=== PATIENT | female | born 1995 | race Caucasian/White ===

== ENCOUNTER 2023-12-26 19:03 | Emergency (ER) | payer MEDICAID ==
[2023-12-26 20:24] LABS: BASOPHILS PERCENT AUTO 0.1 % (0.0-1.0); EOSINOPHILS PERCENT AUTO 0.8 % (1.0-3.0); HEMATOCRIT 43.8 % (37.0-47.0); HEMOGLOBIN 14.9 g/dL (12.0-16.0); LYMPHOCYTES PERCENT AUTO 30.6 % (20.5-50.1); MEAN CORPUSCULAR HEMOGLOBIN 30.1 pg (27.0-34.0); MEAN CORPUSCULAR VOLUME 88.5 fL (80-100); MONOCYTES PERCENT AUTO 7.8 % (2-8); NEUTROPHILS PERCENT AUTO 60.7 % (42.2-75.2); PLATELET COUNT,PLT 463 10^3/uL (150-450); RED BLOOD CELL COUNT 4.95 10^6/uL (4.2-5.4); WHITE BLOOD CELL COUNT,WBC 8.9 10^3/uL (5.0-10.0)
[2023-12-26] MEDS: cefTRIAXone 1 GM Vial IVPUSH ONE (20:24)
[2023-12-26] MEDS: Ketorolac 30 MG/ML SDV IVPUSH ONE (20:24)
[2023-12-26 20:46] LABS: ANION GAP 11.7 mEq/L (7-13); BILIRUBIN TOTAL 0.4 mg/dL (0.2-1.0); CALCIUM 9.5 mg/dL (8.5-10.1); CREATININE 1.1 mg/dL (0.55-1.02); EST CRCL DRUG DOSING (CG) 62.99 mL/min; POTASSIUM,K 3.7 mmol/L (3.5-5.1); PROTEIN TOTAL,TP 7.9 g/dL (6.4-8.2)
[2023-12-26] MEDS: Take Home: Acetaminophen/HYDROcodone 325-5 MG, 5 Tab Pack PO ONE (21:20)
[2023-12-26] MEDS: Ondansetron 4 MG/2 ML SDV IVPUSH ONE (21:56)
[2023-12-26] MEDS: Morphine 2 MG/ML SYRINGE IVPUSH ONE (21:56)
== END 2023-12-26 22:10 | disposition home or self-care (01) ==
LOC: DL.ED 19:03
DX: K04.7 Periapical abscess without sinus (principal); N17.9 Acute kidney failure, unspecified; F17.200 Nicotine dependence, unspecified, uncomplicated
CPT/HCPCS: 36415; 70486; 80053; 81025; 85025; 96374; 96375; 99283-25; 99284; A9270-GY; J0696; J1885; J2270; J2405